=== PATIENT | female | born 1965 | race Caucasian/White ===

== ENCOUNTER 2016-06-16 11:07 | Observation (INO) | payer OTHER ==
[2016-06-16] MEDS ORDERED: MIDAZOLAM 2 MG/2 ML VIAL IVP ONE (11:20)
[2016-06-16] MEDS ORDERED: NS 1,000 ML IV ONE (11:20)
--- NOTE | 2016-06-16 11:54 | CPEKG ---
Heart Rate: 70 RR Interval: 857 P-R Interval: 136 QRSD Interval: 90 QT Interval: 392 QTC Interval: 423 P [place]: 31 QRS [place]: -6 T Wave [place]: -15 EKG Severity - BORDERLINE ECG - EKG Impression: SINUS RHYTHM EKG Impression: BORDERLINE R WAVE PROGRESSION, ANTERIOR LEADS EKG Impression: BORDERLINE T ABNORMALITIES, DIFFUSE LEADS Electronically Signed By: Yon Zelaya 17-Jun-2016 09:09:54
[2016-06-16] MEDS ORDERED: LIDOCAINE 1% 30 ML SDV ONE (11:57)
[2016-06-16] MEDS ORDERED: BUPIVACAINE 0.5% 30 ML SDV ONE (11:58)
[2016-06-16] MEDS ORDERED: ISOPROTERENOL HCL 0.2 MG/ML 5ML AMP ONE (11:58)
[2016-06-16] MEDS ORDERED: HEPARIN 10,000 UNIT/10 ML MDV ONE (11:58)
[2016-06-16] MEDS ORDERED: PROPOFOL 200 MG/20 ML VIAL ONE ×2 (12:06)
[2016-06-16] MEDS ORDERED: fentaNYL 100 MCG/2 ML INJ ONE (12:06)
[2016-06-16 12:10] LABS: INR 0.97 (0.83-1.16); PROTIME(PATIENT) 12.8 SEC (12.0-15.0)
[2016-06-16 12:11] LABS: APTT 29.8 SEC (23.0-38.0)
[2016-06-16 12:17] LABS: % IMMATURE GRANULYOCYTES 0.3 % (0.0-1.1); ABSOLUTE IMMATURE GRANULOCYTES 0.02 10^3/uL (0.00-0.10); ADD DIFF? NO; ADD MORPH? NO; ADD SCAN? NO; ATYPICAL LYMPHOCYTE FLAG 20 (0-99); FRAGMENT RBC FLAG 0 (0-99); HEMATOCRIT 42.9 % (38.0-47.0); HEMOGLOBIN 14.5 g/dL (12.6-16.3); LEFT SHIFT FLG 0 (0-99); LIPEMIA HEMOLYSIS FLAG 90 (0-99); MEAN CELL HEMOGLOBIN 30.9 pg (27.9-34.1); MEAN CELL HEMOGLOBIN CONCENTR. 33.8 g/dL (32.4-36.7); MEAN CELL VOLUME 91.5 fL (81.5-99.8); MEAN PLATELET VOLUME 10.5 fL (8.7-11.7); PLATELET CLUMPS FLAG 0 (0-99); PLATELET COUNT 286 10^3/uL (150-400); RED BLOOD CELL COUNT 4.69 10^6/uL (4.18-5.33); RED CELL DISTRIBUTION WIDTH 12.2 % (11.5-15.2)
[2016-06-16 12:31] LABS: ANION GAP 13 mEq/L (8-16); CALCIUM 9.8 mg/dL (8.5-10.4); CARBON DIOXIDE 23 mEq/l (22-31); CHLORIDE 105 mEq/L (97-110); CREATININE 0.8 mg/dL (0.6-1.0); GLOMERULAR FILTRATION RATE > 60; GLUCOSE 84 mg/dL (70-100); MAGNESIUM 2.1 mg/dL (1.6-2.3); POTASSIUM 4.5 mEq/L (3.5-5.2); SODIUM 141 mEq/L (134-144)
[2016-06-16] MEDS ORDERED: DEXAMETHASONE 4 MG/ML VIAL ONE (14:26)
[2016-06-16] MEDS ORDERED: ONDANSETRON 4 MG/2 ML VIAL ONE (14:26)
[2016-06-16] MEDS ORDERED: SUGAMMADEX SODIUM 200 MG/2 ML VIAL IVP ONE (14:26)
[2016-06-16] MEDS ORDERED: ATROPINE SULFATE 1 MG/10 ML SYR ONE (14:57)
--- NOTE | 2016-06-16 15:32 | CPEKG ---
Heart Rate: 63 RR Interval: 952 P-R Interval: 140 QRSD Interval: 96 QT Interval: 416 QTC Interval: 426 P [place]: 18 QRS [place]: 3 T Wave [place]: -13 EKG Severity - BORDERLINE ECG - EKG Impression: SINUS RHYTHM EKG Impression: BORDERLINE R WAVE PROGRESSION, ANTERIOR LEADS EKG Impression: BORDERLINE T ABNORMALITIES, DIFFUSE LEADS Electronically Signed By: Yon Zelaya 17-Jun-2016 09:09:48
[2016-06-16] MEDS ORDERED: ONDANSETRON 4 MG/2 ML VIAL IVP PRN (15:50)
--- NOTE | 2016-06-16 15:58 | EPPROC ---
Electrophysiology Procedure Note: ELECTROPHYSIOLOGIC STUDY AND CATHETER MEDIATED ABLATION OF SLOW/FAST AV STEVEN REENTRY TACHYCARDIA PROCEDURES PERFORMED: 47545-27 EP evaluation with RA/RV/LA pace/record, with arrhythmia induction 25355-40 EP evaluation with RA/RV pace record, insert/reposition catheter, with arrhythmia induction 03659 Intracardiac catheter ablation, SVT arrhythmogenic focus 77807 3D mapping Fluoroscopy INDICATION: Recurrent SVT, presyncope PROCEDURE: Catheters & Anesthesia: The patient arrived in the Electrophysiology Laboratory in the fasting state. The right clavicular region, right groin, and left groin area were prepped and draped in the usual sterile manner. Anesthesiologist administered general anesthesia. Appropriate non-invasive blood pressure, pulse oximetry and end- tidal CO2 monitoring was established. All catheters were placed percutaneously using the modified Seldinger technique , and advanced into position under fluoroscopic guidance. One #6 [place] hexapolar non-deflectable electrode catheter was inserted into the right atrial appendage via the left femoral vein (2mm spacing; except the proximal ring which was 25cm from the tip used for unipolar recordings). One #7 [place]ut deflectable octapolar electrode catheter was advanced to the His-bundle position via the left femoral vein (2mm spacing). One #7 [place] deflectable quadrapolar catheter was advanced to the anteroseptal right ventricle via the right femoral vein. One #7 [place]ut deflectable catheter with 10 pairs of electrodes was placed via the right femoral vein into the coronary sinus. Heparin was given to keep ACT > 200 s. Programmed stimulation was performed from the right atrium, right ventricle and coronary sinus (left atrium). Parahisian pacing demonstrated constant H-A interval with changing V-A intervals and stimulus-A intervals during capture and loss of capture of proximal RBB proving retrograde conduction over AV node. AVNRT was induced easily during infusion of isoproterenol 1 mcg/min. AVNRT started with long AH interval and initially there was 2:1 conduction to ventricles, there was 1:1 conduction with LBBB aberrancy and this did not change VA interval. Ventricular extrastimuli delivered during tachycardia without altering antegrade His bundle activation did not advance next atrial potential, indicating that the tachycardia was not utilizing an accessory pathway for retrograde conduction. VA interval was -15 ms. Post entrainment of the tachycardia from the ventricle, there was VAHV response. Mapping of the right atrium and coronary sinus during AVNRT identified earliest atrial activation above the tendon of [place] at a level slightly posterior to the level of the His bundle, consistent with retrograde conduction over the fast AV steven pathway. A #8 Yakut deflectable quadrapolar electrode catheter (2mm-5mm-2mm spacing) with 4 mm tip electrode and sensor for the 3D mapping Carto system was advanced to the right atrium. 3 D mapping of the inter-atrial septum and coronary sinus was performed and location of the AV node was marked. A SL2 sheath was used. RF applications were delivered to the region between the tricuspid annulus and the coronary sinus ostium, at the level of the upper edge of the coronary sinus ostium. Radiofrequency applications were also delivered along the roof of the proximal coronary sinus. Junctional rhythm occurred during all of the RF applications. Programmed stimulation was continued post ablation at baseline and during graded doses of isoproterenol upto 4mcg/min. Sustained AVNRT was not inducible. There were single echo beats. The catheters were removed. The long sheath was changed to a short 9 Fr sheath. The patient was transferred to the cardiovascular holding area in stable condition. Vascular access sheaths were removed in the holding area. There were no apparent complications. Results: A. Spontaneous Intervals: Pre ablation SCL 1170 ms AH 50 ms HV 45 ms Post ablation SCL 960 ms AH 45 ms HV 42 ms B. Antegrade AV steven function (decremental pacing) Pre ablation FPERP 450 ms SPERP 440 ms WBB CL 430 ms Post ablation FPERP 390 ms WBB CL 380 ms C. Retrograde AV steven function (decremental pacing) Pre ablation FPERP 290 ms WBB CL 280 ms D. Arrhythmias: Sustained slow/fast AVNRT Cycle length 280 ms, AH interval 240 ms, MARTÍNEZ interval 40 ms VA interval -15 ms CONCLUSIONS 1. 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 ( Slow/fast AVNRT). 2. Successful ablation of the slow AV steven pathway with elimination of 1:1 antegrade conduction over the slow AV steven pathway, all retrograde conduction over the slow AV steven pathway and the inducibility of AVNRT. 3. No complications. Patient Problems: Problems Problem Status Onset SVT (supraventricular tachycardia) Acute
[2016-06-16 17:44] LABS: ANION GAP 8 mEq/L (8-16); CALCIUM 8.5 mg/dL (8.5-10.4); CARBON DIOXIDE 23 mEq/l (22-31); CHLORIDE 107 mEq/L (97-110); CREATININE 0.8 mg/dL (0.6-1.0); GLOMERULAR FILTRATION RATE > 60; GLUCOSE 80 mg/dL (70-100); MAGNESIUM 1.9 mg/dL (1.6-2.3); POTASSIUM 3.9 mEq/L (3.5-5.2); SODIUM 138 mEq/L (134-144)
[2016-06-17 06:17] LABS: % IMMATURE GRANULYOCYTES 0.3 % (0.0-1.1); ABSOLUTE IMMATURE GRANULOCYTES 0.03 10^3/uL (0.00-0.10); ADD DIFF? NO; ADD MORPH? NO; ADD SCAN? NO; ATYPICAL LYMPHOCYTE FLAG 0 (0-99); FRAGMENT RBC FLAG 0 (0-99); HEMATOCRIT 39.5 % (38.0-47.0); HEMOGLOBIN 13.3 g/dL (12.6-16.3); LEFT SHIFT FLG 0 (0-99); LIPEMIA HEMOLYSIS FLAG 80 (0-99); MEAN CELL HEMOGLOBIN 31.4 pg (27.9-34.1); MEAN CELL HEMOGLOBIN CONCENTR. 33.7 g/dL (32.4-36.7); MEAN CELL VOLUME 93.2 fL (81.5-99.8); MEAN PLATELET VOLUME 11.1 fL (8.7-11.7); PLATELET CLUMPS FLAG 0 (0-99); PLATELET COUNT 272 10^3/uL (150-400); RED BLOOD CELL COUNT 4.24 10^6/uL (4.18-5.33); RED CELL DISTRIBUTION WIDTH 12.2 % (11.5-15.2)
[2016-06-17 06:27] LABS: ANION GAP 10 mEq/L (8-16); CALCIUM 9.3 mg/dL (8.5-10.4); CARBON DIOXIDE 22 mEq/l (22-31); CHLORIDE 105 mEq/L (97-110); CREATININE 0.7 mg/dL (0.6-1.0); GLOMERULAR FILTRATION RATE > 60; GLUCOSE 124 mg/dL (70-100); POTASSIUM 4.8 mEq/L (3.5-5.2); SODIUM 137 mEq/L (134-144)
[2016-06-17 06:28] LABS: INR 1.04 (0.83-1.16); PROTIME(PATIENT) 13.5 SEC (12.0-15.0)
[2016-06-17 06:35] LABS: CREATINE KINASE-MB FRACTION 0.54 ng/mL (0-3.19); TROPONIN I 0.062 ng/mL (0-0.034)
[2016-06-17] MEDS ORDERED: ACETAMINOPHEN 325 MG TAB PO PRN (08:09)
[2016-06-17 08:17] VITALS: BP 112/69; PULSE 67; RESP 20; TEMP 98.8; O2SAT 95
[2016-06-17 08:27] LABS: CHOLESTEROL 173 mg/dL (140-220); CHOLESTEROL/HDL RATIO 3.46 RATIO (1.00-4.44); HIGH DENSITY LIPOPROTEIN 50 mg/dL (40-85); LDL/HDL RATIO 2.06 RATIO (1.00-3.22); LOW DENSITY LIPOPROTEIN 103 mg/dL (80-100); NON-HIGH DENSITY LIPOPROTEIN 123 mg/dL (90-129); TRIGLYCERIDE 103 mg/dL (35-135); VERY LOW DENSITY LIPOPROTEINS 20 mg/dL (8-25)
[2016-06-17] MEDS ORDERED: ASPIRIN 81 MG CHEWABLE TAB PO SCH (09:00)
--- NOTE | 2016-06-17 09:12 | CPEKG ---
Heart Rate: 59 RR Interval: 1017 P-R Interval: 136 QRSD Interval: 98 QT Interval: 416 QTC Interval: 413 P [place]: 22 QRS [place]: 11 T Wave [place]: -28 EKG Severity - ABNORMAL ECG - EKG Impression: SINUS RHYTHM EKG Impression: NONSPECIFIC T ABNORMALITIES, DIFFUSE LEADS Electronically Signed By: Yon Zelaya 17-Jun-2016 11:57:14
--- NOTE | 2016-06-17 10:48 | GDS ---
ADMISSION DIAGNOSIS: Supraventricular tachycardia. DISCHARGE DIAGNOSES: 1. 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 2. Status post successful ablation of atrioventricular britni pathway with the elimination of 1 to 1 antegrade conduction over the slow atrioventricular britni pathway. PROCEDURES DONE DURING HOSPITALIZATION: 1. Electrocardiogram. 2. Electrophysiology study. 3. Echocardiogram. BRIEF HISTORY: Please see history and physical: The patient is a 51-year-old female, who has a his tory of paroxysmal supraventricular tachycardia. Her heart rates have been measuring between 180 to 240 BPM, since August of 2014 she has had 3 episodes, resulting in emergency department visits for adm inistration of adenosine. She was seen by Dr. Zelaya, and evaluated, felt to be an appropriate isidro te for undergoing electrophysiology procedure with the goal of potentially identifying the SVT pathw ay, and potential ablation. Patient is admitted through C[facility], prepped for procedure and taken to electrophysiology lab, where Dr. Zelaya was able to successfully identify an AVNRT slow AV britni pathway, he successfully ablated with no complications. She was ultimately transferred to the CVC and to the PCU for overnight observatio n. During the night she has remained in sinus rhythm with no significant arrhythmia noted. She den ies of any chest pain, shortness of breath, lightheadedness, throughout the evening. She has been u p and walking the unit without difficulty. PHYSICAL EXAMINATION: GENERAL APPEARANCE: Physical exam done today, well-built, well-groomed, Cauc female. She is alert and oriented to person, place, time, and situation, appears to be in no acute distress. VITAL SIGNS: Current vital signs are a blood pressure of 112/69, heart rate of 67, sinus rhythm on the monitor, respirations are 20, saturating 95% on room air. Temperature of 37.1 degrees Celsius. HEENT: Head is normocephalic, lips and tongue are pink and moist with no signs of cyanosis. Conjunctivae are pink. NECK: Trachea is midline, +2 carotid pulses bilateral, no auscu ltated bruits, without jugular vein distention. RESPIRATORY: Lungs clear to auscultation, no rhonc hi, rales or wheezes, no accessory muscle use, no intercostal muscle retraction noted. CARDIAC: Re gular rate, regular rhythm, S1 and S2. No S3, S4, rubs, gallops or murmur noted. ABDOMEN: Soft, n ontender, bowel sounds x4 quadrants, no organomegaly, no palpable masses. SKIN: [place], warm, dry. No cyanosis, no clubbing. No peripheral edema. VASCULAR: With +2 carotids bilateral, +2 radials b ilateral, +2 dorsal pedal and posterior tibial pulses bilateral. Catheter insertion site, bilateral groin sites with no redness, swelling, drainage, ecchymosis or hematoma noted, no auscultated bruit s. LABORATORY DATA: Laboratory studies done today, WBC of 10.76, hemoglobin of 13.3, hematocrit of 39. 5, platelet count 272, INR of 1.04, sodium of 137, potassium 4.8, chloride 105, CO2 of 22, BUN 12, c reatinine 0.7, glucose 124, calcium 9.3, magnesium post procedure was 1.9. Today, CK was 51, CK-MB fraction was 0.54, troponin was 0.062. Note that expected elevated cardiac enzymes post ablation. Fasting lipid panel done today shows triglycerides of 103, total cholesterol 173, LDL of 103, HDL of 50. STUDIES: Electrophysiology and ablation study as mentioned above, electrocardiogram done this kecia ng shows sinus rhythm, with nonspecific T-waves in diffuse leads. This is unchanged from preprocedu re. Echocardiogram preliminary showing normal LV systolic function with no wall motion abnormalitie s, normal ejection fraction, no pericardial effusion. DISCHARGE DISPOSITION: Patient will be discharged home in stable condition. She is under activity restrictions of not lifting more than 10 pounds for the next 48 hours, no strenuous activity, and no strenuous activity for the next 2 weeks. DISCHARGE MEDICATIONS: Please see discharge medications medication reconciliation sheet. Note greg ent will be sent home on 81 mg of aspirin daily. DISCHARGE INSTRUCTIONS: Post EP status post ablation discharge instructions went over with the greg ent and her , including activity restrictions, monitoring bleeding precautions, monitoring fo r signs of infections, and medication compliance. Patient has also been told that due to her recent ablation she is at a higher risk of thrombotic event due to hypercoagulated state, and she has been instructed to take aspirin 81 mg p.o. for the next 6 weeks. She has also been encouraged for every 35 to 45 minutes sitting that she gets up and walks for 5 to 10 minutes while awake. At the time o f discharge patient verbalizes understanding of all discharge instructions. She has a followup appo intment with Dr. Zelaya on July 17, 2016. She has been told that any problems or concerns post discha rge they are to call our office or return to the hospital. Total time spent on discharge greater th an 30 minutes. /[id number]/MODL
--- NOTE | 2016-06-17 11:19 | ECHO ---
[id number] + + [address] : : [place] [address] : : [phone] + + Adult Echocardiographic Report + -------+ :Name: Sonya CHILDRESS Date: 06/17/2016 08:59 AM : : Hospital Admission Number: [id number] Locati on: 202: :: 1965 Gender: Female Height: 66 in : :Age: 51 yrs Race: WH Weight: 164 lb : :Reason For Study: Eval LV Fx : : BSA: 1.8 meter s2 : :History: F/U EP Study : + -------+ MMode/2D Measurements \T\ Calculations IVSd: 1.00 cm LVIDd: 4.2 cm FS: 45.0 % Ao root diam: 2.9 cm LVPWd: 1.0 cm LVIDs: 2.3 cm EDV(Teich): 78.6 ml ACS: 1.9 cm ESV(Teich): 18.3 ml EF(Teich): 76.7 % Normal Measurement Values: + + :LVIDd (3.5-5.7cm) IVSd (0.6-1.1cm) LVPWd (0.6-1.1cm) Aortic Root (2.0-3.7cm)Left Atrium (1.5-4.0cm): :LV Vol(d) (76-115ml) LV Vol(s) (29-48ml) Ejec Fraction (50-65%)PV Caleb (0.6- 1.2m/s) TV Caleb (0.4-1.0m/s) : :MV E Caleb (0.8-1.0m/s)MV A Caleb (0.3-1.0m/s)LVOT Caleb (0.7-1.2m/s) Asc Ao Caleb ( 0.9-1.8m/s) : + + Doppler Measurements \T\ Calculations MV E max caleb: Ao V2 max: LV V1 max: PA V2 max: 80.9 cm/sec 129.0 cm/sec 103.0 cm/sec 99.1 cm/sec MV A max caleb: Ao max P.7 mmHgLV V1 max PG: PA max P.7 cm/sec 4.2 mmHg 3.9 mmHg MV E/A: 1.3 Left Ventricle The left ventricle is normal in size. There is normal left ventricular wall thickness. The left ventricular ejection fraction is normal. Ejection Fraction = 77%. The left ventricular wall motion is normal. Right Ventricle The right ventricle is normal in size and function. Atria The left atrial size is normal. Right atrial size is normal. Mitral Valve The mitral valve is normal in structure and function. There is no evidence of mitral valve prolapse. There is no mitral valve stenosis. There is no mitral regurgitation noted. Tricuspid Valve Normal tricuspid valve. No tricuspid regurgitation. Aortic Valve The aortic valve is normal in structure and function. The aortic valve is trileaflet. There is no aortic stenosis. There is no aortic insufficiency. Pulmonic Valve The pulmonic valve is normal in structure and function. There is no pulmonic valvular regurgitation. Great Vessels The aortic root is normal size. Pericardium/Pleural There is no pericardial effusion. Conclusion A complete two-dimensional transthoracic echocardiogram was performed (2D, M-mode, Doppler and color flow Doppler). The left ventricular ejection fraction is normal. Ejection Fraction = 77%. The left ventricular wall motion is normal. The right ventricle is normal in size and function. The mitral valve is normal in structure and function. Normal tricuspid valve The aortic valve is normal in structure and function. The aortic valve is trileaflet. There is no pericardial effusion. Final Reading Physician: Yon Zelaya MD electronically signed on 06/17/2016 11:18 AM Ordering Physician: Yon Zelaya Performed By: Zheng Bahena, CS
== END 2016-06-17 10:46 | disposition home or self-care (01) ==
LOC: FCATH 11:07 → F2W 14:58
PROVIDERS: ADMIT Internal Medicine Cardiovascular Disease; ATTEND Internal Medicine Cardiovascular Disease
PROC: 02563ZZ Destruction of Right Atrium, Percutaneous Approach (ICD-10-PCS; principal; 2016-06-16)
PROC: 4A023FZ Measurement of Cardiac Rhythm, Percutaneous Approach (ICD-10-PCS; 2016-06-16)
PROC: 5A1213Z Performance of Cardiac Pacing, Intermittent (ICD-10-PCS; 2016-06-16)
PROC: 02K83ZZ Map Conduction Mechanism, Percutaneous Approach (ICD-10-PCS; 2016-06-16)
DX: I47.1 Supraventricular tachycardia (principal); E78.5 Hyperlipidemia, unspecified; Z82.49 Family history of ischemic heart disease and other diseases of the circulatory system; Z88.2 Allergy status to sulfonamides
CPT/HCPCS: 93005; 93306; 93613; 93621; 93623; 93653; C1730; C1731; C1732; G0378; C1893; J0461; J1100; J1644; J2250; J2405; J2704; J3010